=== PATIENT | male | born 1950 | race Caucasian/White ===

== ENCOUNTER 2018-06-28 17:38 | Emergency (ER) | payer BC, OTHER ==
[2018-06-28 17:55] VITALS: RESP 16
[2018-06-28] MEDS ORDERED: DIPH,PERTUS(ACELL)TETVAC-LF 0.5 ML VIAL IM ONE (18:13)
--- NOTE | 2018-06-28 18:30 | ED ---
Upper Extremity HPI - General Chief Complaint: Extremity Injury, Upper Stated Complaint: LAC Time Seen by Provider: 06/28/18 17:57 Source: patient, RN notes reviewed Mode of arrival: ambulatory Limitations: no limitations - History of Present Illness Initial Comments: This is a 67-year-old male who presents to the emergency department with chief complaint of right upper extremity injuries. Patient states approximately 1-1/ 2 hours ago he was at work. He states that he was in a poorly lit room looking for supplies. Patient states that he did see and hear a fan but thought that there was a cover over it. He states that he put his arm out to push it out of the way and the fan cut his right forearm. Patient states that he looked down and then noticed that it also cut the pinky finger on his right hand. Patient states he does have normal sensation. He was transported to the emergency department via EMS. He states he is unsure if he is up-to-date with his tetanus vaccination. Patient denies any other injuries or trauma. Denies fever , chills, chest pain, shortness of breath, abdominal pain, nausea or vomiting, numbness or tingling, headache or vision changes. - Related Data Home Medications Medication Instructions Recorded Confirmed Fluticasone Propionate [Flonase] 1 spray EA NOSTRIL BID 08/21/14 05/15/16 Loratadine [Claritin] 10 mg PO DAILY 08/21/14 05/15/16 Multivitamin [Men's Multi-Vitamin] 1 tab PO DAILY 08/21/14 05/15/16 Previous Rx's Medication Instructions Recorded Ibuprofen [Motrin] 600 mg PO Q8HR PRN #30 tab 06/02/15 Levofloxacin [Levaquin] 750 mg PO DAILY #14 tab 05/16/16 Cephalexin [Keflex] 500 mg PO Q12HR #20 cap 06/28/18 Allergies Allergy/AdvReac Type Severity Reaction Status Date / Time No Known Allergies Allergy Verified 05/15/16 23:44 Review of Systems ROS Statement: Those systems with pertinent positive or pertinent negative responses have been documented in the HPI. ROS Other: All systems not noted in ROS Statement are negative. Past Medical History Additional Past Medical History / Comment(s): kidney stones, seasonal allergies History of Any Multi-Drug Resistant Organisms: None Reported Past Surgical History: Hernia Repair, Tonsillectomy Additional Past Surgical History / Comment(s): hemorroids Past Psychological History: No Psychological Hx Reported Smoking Status: Never smoker Past Alcohol Use History: Rare Past Drug Use History: None Reported General Exam - General Exam Comments Initial Comments: General: Awake and alert, well-developed; in mild distress due to anxiety about the incident. HEENT: Head atraumatic, normocephalic. Pupils are equal, round and reactive to light. Extraocular movements intact. Oropharynx moist without erythema or exudate. Neck: Supple. Normal ROM. Cardiovascular: Regular rate and rhythm. No murmurs, rubs or gallops. Chest symmetrical. Respiratory: Lungs clear to auscultation bilaterally. No wheezes, rales or rhonchi. Normal respiratory effort with no use of accessory muscles. Musculoskeletal: Patient unable to move the fifth digit on right hand. Ulnar deviation of the finger. Sensation is intact. Radial pulses are 2+ equal and palpable bilaterally. Skin: Approximately 2.0 cm laceration to the webbing between fingers 4 and 5 on the right hand. Approximately 5 cm laceration mid right dorsal forearm. Approximately 8 cm superficial laceration proximal right dorsal forearm. Bleeding is controlled. Neurological: Alert and oriented x3. CN II-XII grossly intact. Speech is fluent and answers are appropriate. No focal neuro deficits. Limitations: no limitations Course Vital Signs 06/28/18 17:53 Temperature 97.5 F L Pulse Rate 89 Respiratory 16 Rate Blood Pressure 154/88 O2 Sat by Pulse 100 Oximetry Procedures - Laceration Laceration #1 Consent Obtained: verbal consent Indication: laceration Site: hand (webbing between fingers 4 and 5 on right hand ) Size (cm): 2 Description: linear Depth: involves muscle layer Anesthetic Used: lidocaine 1% Anesthesia Technique: local infiltration Amount (mls): 3 Pre-repair: wound explored, irrigated extensively Type of Sutures: nylon Size of Sutures: 5-0 Number of Sutures: 5 Technique: simple, interrupted Patient Tolerated Procedure: well, no complications Laceration #2 Consent Obtained: verbal consent Indication: laceration Site: upper extremity (right mid dorsal forearm ) Size (cm): 5 Description: linear Depth: simple, single layer Anesthetic Used: lidocaine 1% Anesthesia Technique: local infiltration Amount (mls): 3 Pre-repair: wound explored, irrigated extensively, deep structures intact Type of Sutures: nylon Size of Sutures: 4-0 Number of Sutures: 5 Technique: simple, interrupted Patient Tolerated Procedure: well, no complications Laceration #3 Consent Obtained: verbal consent Indication: laceration Site: upper extremity (right proximal dorsal forearm ) Size (cm): 8 Description: linear Depth: simple, single layer Anesthetic Used: lidocaine 1% Anesthesia Technique: local infiltration Amount (mls): 3 Pre-repair: wound explored, irrigated extensively, deep structures intact Type of Sutures: nylon Size of Sutures: 4-0 Number of Sutures: 5 Technique: simple, interrupted Patient Tolerated Procedure: well, no complications - Orthopedic Fracture Reduction Fracture #1 Consent Obtained: verbal consent Side: right Fracture Reduction Location: finger (fifth digit) Analgesia: digital block Technique: traction/counter-traction Post Reduction X-rays Demonstrate: anatomical reduction Post-Reduction Neuro Exam: intact Post-Reduction Vascular Exam: intact Splint Applied: Yes (ulnar gutter short arm OCL) Patient Tolerated Procedure: well, no complications Medical Decision Making - Medical Decision Making This is a 67-year-old male who presents to the emergency department with chief complaint of right arm injury. Patient reports accidentally sticking his right arm into a rotating fan. Patient sustained multiple lacerations to the hand and the forearm. Lacerations were thoroughly cleansed and explored. No obvious tendon laceration to the right pinky, however it is deformed with ulnar deviation and patient unable to flex the finger. Lacerations were repaired. X- ray of the right forearm revealed no acute osseous abnormalities. X-ray of the right hand revealed a fracture of the proximal phalanx on the right fifth digit with posterior angulation. I spoke with Elle Smart PA-C from [facility] regarding this case. She states that patient can be seen by Dr. Hankins in the office on Saturday. Recommended reduction and an ulnar gutter splint. Reduction of fracture was attempted. An audible pop was heard and an ulnar gutter splint was immediately placed. Postreduction x-ray was obtained which revealed successful reduction with no new fractures. Fracture is open so patient was treated with antibiotics in the emergency department. He will be discharged home on Keflex. Patient was made up-to-date with tetanus vaccination. Patient is to keep splint clean, dry and intact. He is to follow- up with [facility] on Saturday morning. He is to have sutures removed in 10-14 days. Vital signs are stable and patient is in no acute distress. He will be discharged home at this time. All questions were answered. - Radiology Data Radiology results: report reviewed, image reviewed X-ray right hand impression: Fracture proximal metaphysis proximal phalanx fifth digit with posterior angulation of the distal fracture fragment. X-ray right forearm impression: soft tissue injury right forearm. Radius and ulna appear intact. Postreduction x-ray right hand impression: Reduction of a proximal fifth phalanx fracture. No new fractures are evident. Disposition Clinical Impression: Open fracture of finger of right hand, Laceration of forearm, right Disposition: HOME SELF-CARE Condition: Good Instructions: Laceration (ED), Finger Fracture (ED), Splint Care (ED), Finger Laceration (ED) Additional Instructions: Please follow-up with [facility] on Saturday morning. Please have sutures in your arm removed in 10-14 days. Please leave splint clean, dry and intact. Please take medications as prescribed. Please follow up with primary care provider within 1-2 days. Return to emergency department if symptoms should worsen or any concerns arise. Prescriptions: Cephalexin [Keflex] 500 mg PO Q12HR #20 cap Is patient prescribed a controlled substance at d/c from ED?: No Referrals: Lidia Brooks III, MD [Primary Care Provider] - 1-2 days Grady Hankins DO [Doctor of Osteopathic Medicine] - 1-2 days Time of Disposition: 21:00
--- NOTE | 2018-06-28 18:33 | XR ---
EXAMINATION TYPE: XR hand complete RT DATE OF EXAM: 06/28/2018 COMPARISON: None HISTORY: Laceration TECHNIQUE: Three-view right hand FINDINGS: There is a transverse fracture through the proximal metaphysis proximal phalanx fifth digit . Laceration is evident within soft tissues at this level. There is posterior angulation of the dista l fracture fragment. Joint space narrowing is present throughout the proximal and distal interphalangeal joint spaces. Sof t tissues are otherwise unremarkable. IMPRESSION: 1. 1. Fracture proximal metaphysis proximal phalanx fifth digit with posterior angulation of the distal fracture fragment.
[2018-06-28] MEDS ORDERED: ceFAZolin 1,000 MG VIAL IM STA (18:35)
--- NOTE | 2018-06-28 18:44 | XR ---
EXAMINATION TYPE: XR forearm RT DATE OF EXAM: 06/28/2018 COMPARISON: None HISTORY: Lacerations TECHNIQUE: 2 view right forearm FINDINGS: There appears to be some soft tissue injury over the radial aspect of the forearm. Radius and ulna appear intact. No radiopaque foreign bodies are evident. IMPRESSION: 1. Soft tissue injury right forearm. 2. Radius and ulna appear intact.
--- NOTE | 2018-06-28 20:38 | XR ---
EXAMINATION TYPE: XR hand limited RT DATE OF EXAM: 06/28/2018 COMPARISON: Right hand earlier in the day HISTORY: Fracture proximal fifth phalanx TECHNIQUE: 2 view right hand. Images were obtained through fiberglass splint FINDINGS: The fracture at the proximal phalanx has been reduced. No new fractures are evident. IMPRESSION: 1. Reduction of a proximal fifth phalanx fracture
[2018-06-28 21:05] VITALS: BP 149/78; PULSE 86; TEMP 98
== END 2018-06-28 20:45 | disposition home or self-care (01) ==
LOC: EC 17:38
DX: S62.616A Displaced fracture of proximal phalanx of right little finger, initial encounter for closed fracture (principal); S51.811A Laceration without foreign body of right forearm, initial encounter; S61.411A Laceration without foreign body of right hand, initial encounter; Z79.51 Long term (current) use of inhaled steroids; Z79.899 Other long term (current) drug therapy; Z23 Encounter for immunization; W29.2XXA Contact with other powered household machinery, initial encounter; Y92.69 Other specified industrial and construction area as the place of occurrence of the external cause; Y99.0 Civilian activity done for income or pay
CPT/HCPCS: 99284; 26725; 12005; 96372; 90471; 73090; 73120; 73130; 90715; J0690

== ENCOUNTER 2018-06-30 19:33 | Emergency (ER) | payer OTHER, BC ==
--- NOTE | 2018-06-30 21:36 | ED ---
Upper Extremity HPI - General Chief Complaint: Extremity Injury, Upper Stated Complaint: Work Injury complication r hand Time Seen by Provider: 06/30/18 20:36 Source: patient Mode of arrival: ambulatory Limitations: no limitations - History of Present Illness Initial Comments: This a 67 yo-year-old male with recent dx of open right proximal phalanx of the 5th digit currently taking keflex who presents today for thumb tingling and swelling. Pt states that he did not know he was supposed to call himself to make the orthopedic surgery f/u supposed to be scheduled for Saturday. He called today and they stated they could not get him in until Saturday. Pt then later this evening his thumb began tingling and he noticed increased swelling of his medial aspect of right hand. Pt denies numbness, loss of sensation, increasing pain, erythema, fever, chills, increasing pain in the right 5th digit or any other symptoms. Pt thought that the splint may have been too tight. He also admitted to not elevating his hand and has had it hanging next to him while in the recliner since Saturday. Patient denies any recent fever, chills, shortness of breath, chest pain, back pain, abdominal pain, nausea or vomiting, numbness or tingling, dysuria or hematuria, constipation or diarrhea, headaches or visual changes, or any other complaints. VS stable, pt afebrile. - Related Data Home Medications Medication Instructions Recorded Confirmed Fluticasone Propionate [Flonase] 1 spray EA NOSTRIL BID 08/21/14 05/15/16 Loratadine [Claritin] 10 mg PO DAILY 08/21/14 05/15/16 Multivitamin [Men's Multi-Vitamin] 1 tab PO DAILY 08/21/14 05/15/16 Previous Rx's Medication Instructions Recorded Ibuprofen [Motrin] 600 mg PO Q8HR PRN #30 tab 06/02/15 Levofloxacin [Levaquin] 750 mg PO DAILY #14 tab 05/16/16 Cephalexin [Keflex] 500 mg PO Q12HR #20 cap 06/28/18 HYDROcodone/APAP 5-325MG [Gilbert 5] 1 each PO Q6HR PRN 1 Days #4 tab 06/30/18 Allergies Allergy/AdvReac Type Severity Reaction Status Date / Time No Known Allergies Allergy Verified 05/15/16 23:44 Review of Systems ROS Statement: Those systems with pertinent positive or pertinent negative responses have been documented in the HPI. ROS Other: All systems not noted in ROS Statement are negative. Constitutional: Denies: fever, chills Eyes: Denies: vision change ENT: Denies: ear pain Respiratory: Denies: cough, dyspnea Cardiovascular: Denies: chest pain, palpitations Endocrine: Denies: fatigue Gastrointestinal: Denies: abdominal pain, nausea, vomiting, diarrhea, constipation Musculoskeletal: Reports: joint swelling, arthralgia Skin: Reports: as per HPI, lesions (lacerations with sutures in place) Neurological: Reports: paresthesias (of right medial side of hand). Denies: headache, weakness, numbness, confusion, abnormal gait Past Medical History Additional Past Medical History / Comment(s): kidney stones, seasonal allergies History of Any Multi-Drug Resistant Organisms: None Reported Past Surgical History: Hernia Repair, Tonsillectomy Additional Past Surgical History / Comment(s): hemorroids Past Psychological History: No Psychological Hx Reported Smoking Status: Never smoker Past Alcohol Use History: Rare Past Drug Use History: None Reported General Exam - General Exam Comments Initial Comments: General: The patient is awake and alert, in no distress, and does not appear acutely ill. Eye: Pupils are equal, round and reactive to light, extra-ocular movements are intact. No nystagmus. There is normal conjunctiva bilaterally. No signs of icterus. Ears, nose, mouth and throat: There are moist mucous membranes and no oral lesions. Neck: The neck is supple, there is no tenderness or JVD. Cardiovascular: There is a regular rate and rhythm. No murmur, rub or gallop is appreciated. Respiratory: Lungs are clear to auscultation, respirations are non-labored, breath sounds are equal. No wheezes, stridor, rales, or rhonchi. Musculoskeletal: Normal ROM of all 5 digits or right hand intact, tenderness of fifth digit. No tenderness to palpation over the thumb of the right hand or proximal MCP joint. Normal ROM of thumb at all joints, wiht 5/5 strength Sensation intact of all 5 digits of hands b/l. Pulses equal bilaterally 2+ .Capillary refill <2seconds all 5 digits of right hand. Pt able to make ok, thumbs up and stop sign. compartments soft and compressible. Neurological: A&O x 3. CN II-XII intact, There are no obvious motor or sensory deficits. Coordination appears grossly intact. Speech is normal. Skin: Skin is warm and dry and no rashes. Lacerations of right forearm and right 5th digits are without signs of secondary infection, no surrounding erythema, warmth, tenderness or drainage. Suture intact. No active bleeding. Soft tissue swelling over the medial dorsal surface of the right hand, no soft tissue swelling over the right 5th digit. Tight splint was removed from the ulnar side of right hand. Psychiatric: Cooperative, appropriate mood & affect, normal judgment. Limitations: no limitations Course Vital Signs 06/30/18 06/30/18 19:46 21:43 Temperature 98.5 F 98.2 F Pulse Rate 71 69 Respiratory 16 18 Rate Blood Pressure 114/66 125/70 O2 Sat by Pulse 98 98 Oximetry Medical Decision Making - Medical Decision Making 67male with recent open fx 06/28/18 lost to f/u, with now scheduled f/u for Saturday, as [facility] stated that they could not get him in until then. physical exam revealed tightly placed splint, and soft tissue swelling. It appeared as though soft tissue swelling was caused by splint. Once removed pt experienced immediate relief stating the tingling sensation in left thumb significantly reduced. compartments soft and compressible and neurovascular exam intact. Pt stated pain hasnt changed since yesterday but wanted a stronger medication. No signs of infection including erythema, increasing warmth , pain out of proportion, purulent drainage. Case was discussed with Dr. Rowe in detail. Pt is to f/u with Orthopedics TOMORROW, and was prescribed 4 tabs of norco for pain mgmt until further orthopedic evaluation and treatment. Pt does not take opiods or benzodiapines at home. Pt agreed with plan and was told to return for worsening symptoms. Im addition pt was told to elevate hand while at home. Disposition Clinical Impression: Fracture of proximal phalanx of right little finger, Open fracture of finger of right hand Disposition: HOME SELF-CARE Condition: Good Additional Instructions: Please use medication as discussed. Please follow-up with orthopedic surgery tomorrow. Please return to emergency room if the symptoms increase or worsen or for any other concerns as discussed. Prescriptions: HYDROcodone/APAP 5-325MG [Gilbert 5] 1 each PO Q6HR PRN 1 Days #4 tab PRN Reason: Pain Is patient prescribed a controlled substance at d/c from ED?: Yes When asked, does pt state using other controlled substances?: No If prescribed controlled substance>3 days was MAPS reviewed?: Prescribed <3 Days If opioid is for acute pain is fill amount 7 days or less?: Yes If Rx opioid, was Start Talking consent form obtained?: Yes Referrals: Lidia Brooks III, MD [Primary Care Provider] - 1-2 days Elle Smart PAC [PHYSICIAN ASSOCIATE VETERINARIAN] - 1-2 days Time of Disposition: 21:36
[2018-06-30 21:45] VITALS: BP 125/70; PULSE 69; RESP 18; TEMP 98.2
== END 2018-06-30 21:43 | disposition home or self-care (01) ==
LOC: EC 19:33
DX: S62.616D Displaced fracture of proximal phalanx of right little finger, subsequent encounter for fracture with routine healing (principal); S51.811D Laceration without foreign body of right forearm, subsequent encounter; Z79.51 Long term (current) use of inhaled steroids; Z79.899 Other long term (current) drug therapy; X58.XXXD Exposure to other specified factors, subsequent encounter
CPT/HCPCS: 99282

== ENCOUNTER → 2019-11-11 | Outpatient (CLI) | payer MEDICARE | END | disposition home or self-care (01) | LOC: LABWHC1 15:21 | PROVIDERS: ATTEND Urology | DX: R97.20 Elevated prostate specific antigen [PSA] (principal) | CPT/HCPCS: 36415; 84153 ==

== ENCOUNTER 2020-05-31 19:59 | Emergency (ER) | payer MEDICARE ==
[2020-05-31 20:11] VITALS: RESP 18
[2020-05-31] MEDS ORDERED: ONDANSETRON 4 MG/2 ML VIAL IVP STA (20:48)
[2020-05-31] MEDS ORDERED: KETOROLAC 30 MG/ML 1 ML VIAL IVP STA (20:48)
--- NOTE | 2020-05-31 21:16 | CT ---
EXAMINATION TYPE: CT abdomen pelvis wo con DATE OF EXAM: 05/31/2020 COMPARISON: None HISTORY: right flank pain. hx of stones. CT DLP: 533.8 mGycm Automated exposure control for dose reduction was used. Multiple axial sections were obtained from the diaphragm to the floor the pelvis with no contrast. Lung bases are clear of consolidation. There is no pleural effusion. Heart is enlarged. There is 1 cm hypodensity in the anterior right lobe of the liver. Gallbladder has normal size and co ntour. Stomach is intact. There is small hiatal hernia. Spleen is intact. There is no evidence of rangel creatic mass. Kidneys have normal size. There is right side hydronephrosis and hydroureter. There is 6 mm calculus proximal right ureter. There is 5 mm calculus lower pole right kidney. There is 5 mm calculus medial left kidney. There is no retroperitoneal adenopathy. Ureters are not dilated. There is 6 cm enlarged prostate with calcification. There is no inguinal hernia. There is no evidence of bladder mass. There is mild urin noah bladder wall thickening. There is no sign of thickened appendix. Appendix not well seen. There is spondylotic changes in the l umbar spine. There is a slight lumbar levoscoliosis. The bony pelvis appears intact. IMPRESSION: Bilateral renal calculi. Obstructing calculus proximal right ureter with right-sided hydronephrosis. Cardiomegaly. Mild hypertrophic changes in the urinary bladder. Enlarged prostate.
[2020-05-31 21:56] LABS: Basophils % (A) 0 %; Eosinophils # (A) 0.1 k/uL (0-0.7); Eosinophils % (A) 2 %; HCT 43.3 % (39.0-53.0); HGB 13.9 gm/dL (13.0-17.5); Lymphocytes # (A) 1.3 k/uL (1.0-4.8); Lymphocytes % (A) 16 %; MCH 29.6 pg (25.0-35.0); MCHC 32.1 g/dL (31.0-37.0); Mean Platelet Volume 7.3; Monocytes # (A) 0.4 k/uL (0-1.0); Monocytes % (A) 5 %; Neutrophils # (A) 5.9 k/uL (1.3-7.7); Neutrophils % (A) 75 %; Platelet Count 304 k/uL (150-450); RBC 4.71 m/uL (4.30-5.90); WBC 7.8 k/uL (3.8-10.6)
[2020-05-31 22:06] LABS: Calcium 9.6 mg/dL (8.4-10.2); Potassium 4.5 mmol/L (3.5-5.1); Total Bilirubin 0.6 mg/dL (0.2-1.3); Total Protein 6.2 g/dL (6.3-8.2)
[2020-05-31 22:12] LABS: Appearance,Urine Clear (Clear); Bilirubin,Urine Negative (Negative); Blood,Urine Large (Negative); Calcium Oxalate Crystals,Urine Occasional /hpf; Color,Urine Yellow; Glucose,Urine (UA) Negative (Negative); Hyaline Casts,Urine 7 /lpf (0-2); Ketones,Urine Negative (Negative); Leukocyte Esterase,Urine Trace (Negative); Mucus,Urine Rare /hpf; Nitrite,Urine Negative (Negative); PH, Urine 6.5 (5.0-8.0); Protein,Urine Trace (Negative); RBC,Urine 144 /hpf (0-5); Specific Gravity,Urine 1.017 (1.001-1.035); Urobilinogen,Urine <2.0 mg/dL (<2.0); WBC,Urine 4 /hpf (0-5)
[2020-05-31] MEDS ORDERED: ACET/COD 300 MG/30 MG STARTER PACK 6 TAB BTL PO STA (22:54)
--- NOTE | 2020-05-31 22:59 | ED ---
Abdominal Pain HPI - General Chief Complaint: Abdominal Pain Stated Complaint: R Flank Pain Source: patient, family Mode of arrival: ambulatory Limitations: no limitations - History of Present Illness Initial Comments: Patient is a 6-year-old male with past history of nephrolithiasis who presents emergency Department with reported right-sided flank pain. Patient reports the pain started approximately 1.5 hours prior to arrival. It starts in his right flank and radiates around to the right lower quadrant. States the pain is reminiscent of previous pain with renal stones. States he has not had one in several years. He followed with Dr. Bal at the time. Patient reports associated nausea without vomiting. She did not take anything for his pain became into the emergency department. Denies dysuria, hematuria or difficulty voiding. No diarrhea, constipation, melenic stools or hematochezia. Denies any testicular pain or swelling. There are no other alleviating, precipitating or modifying factors - Related Data Home Medications Medication Instructions Recorded Confirmed Fluticasone Propionate [Flonase] 1 spray EA NOSTRIL HS 08/21/14 05/31/20 Loratadine [Claritin] 10 mg PO HS 08/21/14 05/31/20 Previous Rx's Medication Instructions Recorded Acetaminophen-Codeine 300-30mg 1 tab PO Q6HR PRN #12 tablet 05/31/20 [Tylenol #3] Tamsulosin [Flomax] 0.4 mg PO DAILY #7 cap 05/31/20 Allergies Allergy/AdvReac Type Severity Reaction Status Date / Time No Known Allergies Allergy Verified 05/31/20 21:14 Review of Systems ROS Statement: Those systems with pertinent positive or pertinent negative responses have been documented in the HPI. ROS Other: All systems not noted in ROS Statement are negative. Past Medical History Additional Past Medical History / Comment(s): kidney stones, seasonal allergies History of Any Multi-Drug Resistant Organisms: None Reported Past Surgical History: Hernia Repair, Tonsillectomy Additional Past Surgical History / Comment(s): hemorroids Past Psychological History: No Psychological Hx Reported Smoking Status: Never smoker Past Alcohol Use History: Rare Past Drug Use History: None Reported General Exam Limitations: no limitations Course Vital Signs 05/31/20 05/31/20 20:09 23:19 Temperature 98.3 F 97.8 F Pulse Rate 80 60 Respiratory 18 18 Rate Blood Pressure 167/90 147/85 O2 Sat by Pulse 98 97 Oximetry Medical Decision Making - Medical Decision Making Upon arrival the patient was placed into room 11. A thorough history and physical exam was performed. Peripheral IV was established. Laboratory studies were conducted. The patient did provide a urine sample. He was given 4 mg of Zofran for nausea and 15 mg of Toradol for pain. Laboratory studies are un remarkable. Urinalysis shows 144 red blood cells with occasional calcium oxalate crystals and large blood. CT of the patient's abdomen and pelvis demonstrates a lateral renal Kegley with an obstructing calculus at the proximal right ureter with right-sided hydronephrosis. I discussed results of the patient. Pain is controlled at this time. The patient will be discharged home with prescriptions for Tylenol 3, Flomax. He is instructed to take Motrin as well for his pain. He will be given a Tylenol starter pack. He is to follow-up with his urologist for further treatment plan. If he has any new or worsening symptoms return to the emergency room. Patient was in agreement treatment plan he was discharged home in stable condition - Lab Data Result diagrams: 05/31/20 21:35 05/31/20 21:35 Lab Results 05/31/20 05/31/20 05/31/20 Range/Units 21:35 21:35 21:35 WBC 7.8 (3.8-10.6) k/uL RBC 4.71 (4.30-5.90) m/uL Hgb 13.9 (13.0-17.5) gm/dL Hct 43.3 (39.0-53.0) % MCV 92.0 (80.0-100.0) fL MCH 29.6 (25.0-35.0) pg MCHC 32.1 (31.0-37.0) g/dL RDW 13.0 (11.5-15.5) % Plt Count 304 (150-450) k/uL Neutrophils % 75 % Lymphocytes % 16 % Monocytes % 5 % Eosinophils % 2 % Basophils % 0 % Neutrophils # 5.9 (1.3-7.7) k/uL Lymphocytes # 1.3 (1.0-4.8) k/uL Monocytes # 0.4 (0-1.0) k/uL Eosinophils # 0.1 (0-0.7) k/uL Basophils # 0.0 (0-0.2) k/uL Sodium 138 (137-145) mmol/L Potassium 4.5 (3.5-5.1) mmol/L Chloride 106 (98-107) mmol/L Carbon Dioxide 27 (22-30) mmol/L Anion Gap 5 mmol/L BUN 17 (9-20) mg/dL Creatinine 1.13 (0.66-1.25) mg/dL Est GFR (CKD-EPI)AfAm 76 (>60 ml/min/1.73 sqM) Est GFR (CKD-EPI)NonAf 66 (>60 ml/min/1.73 sqM) Glucose 121 H (74-99) mg/dL Calcium 9.6 (8.4-10.2) mg/dL Total Bilirubin 0.6 (0.2-1.3) mg/dL AST 26 (17-59) U/L ALT 18 (4-49) U/L Alkaline Phosphatase 63 (38-126) U/L Total Protein 6.2 L (6.3-8.2) g/dL Albumin 4.0 (3.5-5.0) g/dL Lipase 76 (23-300) U/L Urine Color Yellow Urine Appearance Clear (Clear) Urine pH 6.5 (5.0-8.0) Ur Specific [place] 1.017 (1.001-1.035) Urine Protein Trace H (Negative) Urine Glucose (UA) Negative (Negative) Urine Ketones Negative (Negative) Urine Blood Large H (Negative) Urine Nitrite Negative (Negative) Urine Bilirubin Negative (Negative) Urine Urobilinogen <2.0 (<2.0) mg/dL Ur Leukocyte Esterase Trace H (Negative) Urine RBC 144 H (0-5) /hpf Urine WBC 4 (0-5) /hpf Calcium Oxalate Crystal Occasional H (None) /hpf Hyaline Casts 7 H (0-2) /lpf Urine Mucus Rare H (None) /hpf Disposition Clinical Impression: Right flank pain, Obstruction of right ureteropelvic junction (UPJ) due to stone Disposition: HOME SELF-CARE Condition: Stable Instructions (If sedation given, give patient instructions): Kidney Stones (ED) Additional Instructions: Please call and make an appoint with Dr. Cole. Return to the emergency department for any new or worsening symptoms Prescriptions: Tamsulosin [Flomax] 0.4 mg PO DAILY #7 cap Acetaminophen-Codeine 300-30mg [Tylenol #3] 1 tab PO Q6HR PRN #12 tablet PRN Reason: pain Is patient prescribed a controlled substance at d/c from ED?: Yes When asked, does pt state using other controlled substances?: No If prescribed controlled substance>3 days was MAPS reviewed?: Prescribed <3 Days If opioid is for acute pain is fill amount 7 days or less?: Yes If Rx opioid, was Start Talking consent form obtained?: Yes Referrals: Lidia Brooks III, MD [Primary Care Provider] - 1-2 days Jericho Devries MD [STAFF PHYSICIAN] - 1-2 days Time of Disposition: 22:59
[2020-05-31 23:20] VITALS: BP 147/85; PULSE 60; TEMP 97.8
== END 2020-05-31 23:20 | disposition home or self-care (01) ==
LOC: EC 19:59
DX: N13.0 Hydronephrosis with ureteropelvic junction obstruction (principal); Z79.899 Other long term (current) drug therapy
CPT/HCPCS: 36415; 80053; 83690; 85025; 81001; 74176; 99284; 96374; 96375; J2405; J1885

== ENCOUNTER → 2020-06-02 | Outpatient (CLI) | payer MEDICARE ==
--- NOTE | 2020-06-02 09:48 | XR ---
EXAMINATION TYPE: XR abdomen 1V DATE OF EXAM: 06/02/2020 Comparison: Correlation CT 05/31/2020 Clinical History: 69-year-old male N20.1 R ureteral stone Findings: A subtle 5 mm calcification in the right mid abdomen. Otherwise, both renal shadows are largely obscu red by bowel content. Phleboliths in the pelvis. Additional prostatic calcifications noted along the lower midline of the p courtney. Nonobstructive bowel gas pattern. Impression: Subtle 5 mm right renal calculus suggested. Otherwise, the renal shadows are largely obscured by over lying bowel content.
== END | disposition home or self-care (01) ==
LOC: RADXRMAIN 08:30
PROVIDERS: ATTEND Urology
DX: N20.0 Calculus of kidney (principal)
CPT/HCPCS: 74018

== ENCOUNTER → 2020-06-21 | Outpatient (CLI) | payer MEDICARE ==
--- NOTE | 2020-06-21 14:48 | XR ---
EXAMINATION TYPE: XR KUB DATE OF EXAM: 06/21/2020 HISTORY: Pain Comparison: None.Single KUB is submitted for interpretation. Findings: Right renal calculi: None Visualized. Right ureteral calculi: None Visualized. Left renal calculi: None Visualized. Left ureteral calculi: None Visualized. Pelvic calcifications: Pelvic calcifications could reflect distal ureteral calculi versus phlebolith s. Correlate clinically. Bowel gas pattern is unremarkable. No free air. No mass effects. IMPRESSION: 1. Pelvic calcifications could reflect distal ureteral calculi versus phleboliths. Correlate clinical ly.
== END | disposition home or self-care (01) ==
LOC: RADXRMAIN 13:55
PROVIDERS: ATTEND Urology
DX: N20.1 Calculus of ureter (principal)
CPT/HCPCS: 74018

== ENCOUNTER → 2020-06-21 | Outpatient (CLI) | payer MEDICARE | LOC: LABWHC1 14:10 | PROVIDERS: ATTEND Urology | DX: R97.20 Elevated prostate specific antigen [PSA] (principal) | CPT/HCPCS: 36415; 84153 ==

== ENCOUNTER → 2020-07-06 | Outpatient (CLI) | payer MEDICARE ==
--- NOTE | 2020-07-06 15:52 | XR ---
EXAMINATION TYPE: XR KUB DATE OF EXAM: 07/06/2020 Comparison: 06/21/2020 Clinical History: 69-year-old male right-sided kidney stone, N20.1 Findings: Rounded densities in the pelvis are unchanged from 06/21/2020. Moderate stool in the right side of the abdomen. Renal shadows are largely obscured by bowel content. Subtle 4 mm density in the right mid a bdomen. Advanced degenerative disc disease L4-L5. Impression: 1. Subtle 4 mm calcification right mid abdomen probably located within the kidney itself. Renal shado ws are largely obscured by bowel content. 2. Stable calcifications within the pelvis, probably phleboliths.
== END | disposition home or self-care (01) ==
LOC: RADXRMAIN 14:21
PROVIDERS: ATTEND Urology
DX: N20.1 Calculus of ureter (principal)
CPT/HCPCS: 74018

== ENCOUNTER → 2020-08-03 | Outpatient (CLI) | payer MEDICARE ==
--- NOTE | 2020-08-03 16:21 | XR ---
EXAMINATION TYPE: XR KUB DATE OF EXAM: 08/03/2020 Comparison: 07/06/2020 Clinical History: 69-year-old male N20.1 Findings: Scattered mild to moderate stool. Nonobstructive bowel gas pattern. 5 mm calcification redemonstrated likely in the lower pole right kidney. Pelvic phleboliths are unchanged. Central prosthetic calcific ations are noted. Degenerated levoconvex curvature along the lower lumbar spine. Impression: Unchanged 5 mm calcification projecting at the lower pole of the right kidney.
== END | disposition home or self-care (01) ==
LOC: RADXRMAIN 15:16
PROVIDERS: ATTEND Urology
DX: N28.89 Other specified disorders of kidney and ureter (principal)
CPT/HCPCS: 74018

== ENCOUNTER 2021-02-10 09:04 | Emergency (ER) | payer MEDICARE ==
[2021-02-10 09:15] VITALS: RESP 18; TEMP 98
[2021-02-10] MEDS ORDERED: SODIUM CHLORIDE 0.9% 1,000 ML IV STA (09:22)
--- NOTE | 2021-02-10 09:26 | ED ---
Abdominal Pain HPI - General Chief Complaint: Abdominal Pain Stated Complaint: kidney stone Time Seen by Provider: 02/10/21 09:19 Source: patient, RN notes reviewed Mode of arrival: ambulatory Limitations: no limitations - History of Present Illness Initial Comments: This is a 70-year-old male presents emergency Department chief complaint of left flank pain. Patient states that the pain started earlier this morning sudden onset. Patient states that it feels similar to when he had kidney stones. Patient states he feels improved at this time he did have a bowel movements morning which did seem to help some but not much. Patient has fevers chills chest pain or any other complaints at this time. - Related Data Home Medications Medication Instructions Recorded Confirmed Fluticasone Propionate [Flonase] 1 spray EA NOSTRIL HS 08/21/14 05/31/20 Loratadine [Claritin] 10 mg PO HS 08/21/14 05/31/20 Previous Rx's Medication Instructions Recorded Acetaminophen-Codeine 300-30mg 1 tab PO Q6HR PRN #12 tablet 05/31/20 [Tylenol #3] Tamsulosin [Flomax] 0.4 mg PO DAILY #7 cap 05/31/20 Tamsulosin [Flomax] 0.4 mg PO DAILY #7 cap 02/10/21 Allergies Allergy/AdvReac Type Severity Reaction Status Date / Time No Known Allergies Allergy Verified 02/10/21 09:12 Review of Systems ROS Statement: Those systems with pertinent positive or pertinent negative responses have been documented in the HPI. ROS Other: All systems not noted in ROS Statement are negative. Past Medical History Additional Past Medical History / Comment(s): kidney stones, seasonal allergies History of Any Multi-Drug Resistant Organisms: None Reported Past Surgical History: Hernia Repair, Tonsillectomy Additional Past Surgical History / Comment(s): hemorroids Past Psychological History: No Psychological Hx Reported Smoking Status: Former smoker Past Alcohol Use History: Occasional Past Drug Use History: None Reported General Exam Limitations: no limitations General appearance: alert, in no apparent distress Head exam: Present: atraumatic, normocephalic, normal inspection Neck exam: Present: normal inspection. Absent: tenderness, meningismus, lymphadenopathy Respiratory exam: Present: normal lung sounds bilaterally. Absent: respiratory distress, wheezes, rales, rhonchi, stridor Cardiovascular Exam: Present: regular rate, normal rhythm, normal heart sounds. Absent: systolic murmur, diastolic murmur, rubs, gallop, clicks GI/Abdominal exam: Present: soft, normal bowel sounds. Absent: distended, tenderness, guarding, rebound, rigid Back exam: Absent: CVA tenderness (R), CVA tenderness (L) Course Vital Signs 02/10/21 09:12 Temperature 98 F Pulse Rate 77 Respiratory 18 Rate Blood Pressure 150/78 O2 Sat by Pulse 100 Oximetry Medical Decision Making - Medical Decision Making Labs, urinalysis and x-ray reviewed patient does have hematuria noted. Patient's pain is consistent with a kidney stone he has symptom-free. Patient be discharged in stable condition return parameters were discussed. - Lab Data Result diagrams: 02/10/21 09:37 02/10/21 09:37 Lab Results 02/10/21 02/10/21 02/10/21 Range/Units 09:37 09:37 09:37 WBC 6.7 (3.8-10.6) k/uL RBC 4.81 (4.30-5.90) m/uL Hgb 14.4 (13.0-17.5) gm/dL Hct 43.6 (39.0-53.0) % MCV 90.6 (80.0-100.0) fL MCH 29.9 (25.0-35.0) pg MCHC 33.0 (31.0-37.0) g/dL RDW 12.8 (11.5-15.5) % Plt Count 299 (150-450) k/uL MPV 7.1 Neutrophils % 68 % Lymphocytes % 23 % Monocytes % 5 % Eosinophils % 3 % Basophils % 0 % Neutrophils # 4.5 (1.3-7.7) k/uL Lymphocytes # 1.5 (1.0-4.8) k/uL Monocytes # 0.4 (0-1.0) k/uL Eosinophils # 0.2 (0-0.7) k/uL Basophils # 0.0 (0-0.2) k/uL Sodium 140 (137-145) mmol/L Potassium 4.2 (3.5-5.1) mmol/L Chloride 105 (98-107) mmol/L Carbon Dioxide 26 (22-30) mmol/L Anion Gap 9 mmol/L BUN 21 H (9-20) mg/dL Creatinine 1.11 (0.66-1.25) mg/dL Est GFR (CKD-EPI)AfAm 77 (>60 ml/min/1.73 sqM) Est GFR (CKD-EPI)NonAf 67 (>60 ml/min/1.73 sqM) Glucose 114 H (74-99) mg/dL Calcium 9.5 (8.4-10.2) mg/dL Total Bilirubin 0.7 (0.2-1.3) mg/dL AST 28 (17-59) U/L ALT 21 (4-49) U/L Alkaline Phosphatase 58 (38-126) U/L Total Protein 6.5 (6.3-8.2) g/dL Albumin 4.0 (3.5-5.0) g/dL Lipase 68 (23-300) U/L Urine Color Yellow Urine Appearance Cloudy (Clear) Urine pH 5.5 (5.0-8.0) Ur Specific [place] 1.023 (1.001-1.035) Urine Protein 1+ H (Negative) Urine Glucose (UA) Negative (Negative) Urine Ketones Negative (Negative) Urine Blood Large H (Negative) Urine Nitrite Negative (Negative) Urine Bilirubin Negative (Negative) Urine Urobilinogen <2.0 (<2.0) mg/dL Ur Leukocyte Esterase Trace H (Negative) Urine RBC >182 H (0-5) /hpf Urine WBC 9 H (0-5) /hpf Ur Squamous Epith Cells <1 (0-4) /hpf Calcium Oxalate Crystal Rare H (None) /hpf Urine Mucus Moderate H (None) /hpf Disposition Clinical Impression: Kidney stone on left side Disposition: HOME SELF-CARE Condition: Stable Instructions (If sedation given, give patient instructions): Kidney Stones (ED) Additional Instructions: Please return to the Emergency Department if symptoms worsen or any other concerns. Prescriptions: Tamsulosin [Flomax] 0.4 mg PO DAILY #7 cap Is patient prescribed a controlled substance at d/c from ED?: No Referrals: Lidia Brooks III, MD [Primary Care Provider] - 1-2 days Keegan Koch MD [STAFF PHYSICIAN] - 1-2 days Time of Disposition: 10:39
[2021-02-10 09:54] LABS: Basophils % (A) 0 %; Eosinophils # (A) 0.2 k/uL (0-0.7); Eosinophils % (A) 3 %; HCT 43.6 % (39.0-53.0); HGB 14.4 gm/dL (13.0-17.5); Lymphocytes # (A) 1.5 k/uL (1.0-4.8); Lymphocytes % (A) 23 %; MCH 29.9 pg (25.0-35.0); MCV 90.6 fL (80.0-100.0); Mean Platelet Volume 7.1; Monocytes # (A) 0.4 k/uL (0-1.0); Monocytes % (A) 5 %; Neutrophils # (A) 4.5 k/uL (1.3-7.7); Neutrophils % (A) 68 %; Platelet Count 299 k/uL (150-450); RBC 4.81 m/uL (4.30-5.90); RDW 12.8 % (11.5-15.5); WBC 6.7 k/uL (3.8-10.6)
[2021-02-10 10:05] LABS: Calcium 9.5 mg/dL (8.4-10.2); Potassium 4.2 mmol/L (3.5-5.1); Total Bilirubin 0.7 mg/dL (0.2-1.3); Total Protein 6.5 g/dL (6.3-8.2)
--- NOTE | 2021-02-10 10:13 | XR ---
EXAMINATION TYPE: XR KUB DATE OF EXAM: 02/10/2021 9:57 AM CLINICAL HISTORY: Left-sided flank pain. History of kidney stones. TECHNIQUE: Two Upright KUB images of the abdomen are obtained. COMPARISON: Abdominal x-ray August 03, 2020. CT May 31, 2020 FINDINGS: Scattered gas is seen in non-distended small bowel loops. Gas and fecal material is seen in non-distended colon. There is no definitive nephrolithiasis on today's x-ray. Possible new left bas ilar opacity silhouetting portion left hemidiaphragm. Underlying levoconvex scoliosis centered L4 lev el. Persistent disc space narrowing and spurring lower lumbar levels. IMPRESSION: As above.
[2021-02-10 10:25] LABS: Appearance,Urine Cloudy (Clear); Bilirubin,Urine Negative (Negative); Blood,Urine Large (Negative); Calcium Oxalate Crystals,Urine Rare /hpf; Color,Urine Yellow; Glucose,Urine (UA) Negative (Negative); Ketones,Urine Negative (Negative); Leukocyte Esterase,Urine Trace (Negative); Mucus,Urine Moderate /hpf; Nitrite,Urine Negative (Negative); PH, Urine 5.5 (5.0-8.0); Protein,Urine 1+ (Negative); RBC,Urine >182 /hpf (0-5); Specific Gravity,Urine 1.023 (1.001-1.035); Squamous Epithelial Cell,Urine <1 /hpf (0-4); Urobilinogen,Urine <2.0 mg/dL (<2.0); WBC,Urine 9 /hpf (0-5)
[2021-02-10] MEDS ORDERED: ACET/COD 300 MG/30 MG STARTER PACK 6 TAB BTL PO STA (10:38)
[2021-02-10 11:10] VITALS: BP 152/98; PULSE 81
== END 2021-02-10 11:09 | disposition home or self-care (01) ==
LOC: EC 09:04
DX: N20.0 Calculus of kidney (principal); Z87.891 Personal history of nicotine dependence
CPT/HCPCS: 36415; 74018; 80053; 81001; 83690; 85025; 96360; 99284

== ENCOUNTER 2022-02-14 09:26 | Day surgery (SDC) | payer MEDICARE ==
[2022-02-13 08:48] VITALS: BMI 27.4
[~2022-02-14 09:26] MED LIST: LACTATED RINGERS 1,000 ML IV SCH; LIDOCAINE 1% (10MG/ML) FOR IV START INTRADERMA PRN
[2022-02-14 09:57] VITALS: TEMP 97.8
[2022-02-14] MEDS ORDERED: PROPOFOL 10 MG/ML 20 ML VIAL IV ONE (10:49)
[2022-02-14] MEDS ORDERED: LIDOCAINE 1% INJ 10MG/ML (20 ML MDV) ONE (10:49)
--- NOTE | 2022-02-14 11:09 | P.PCN ---
Date of Procedure: 02/14/22 Procedure(s) Performed: BRIEF HISTORY: Patient is a 71-year-old pleasant white male scheduled for an elective colonoscopy as a part of evaluation of prior history of colon polyps. His last colonoscopy was 5 years ago. PROCEDURE PERFORMED: Colonoscopy with snare polypectomy. PREOPERATIVE DIAGNOSIS: History of colon polyps. IV sedation per Anesthesia. PROCEDURE: After informed consent was obtained, the patient, was brought into the endoscopy unit. IV sedation was administered by Anesthesia under continuous monitoring. Digital rectal examination was normal. Initially the Olympus CF-160 flexible video colonoscope was then inserted in the rectum, gradually advanced into the cecum without any difficulty. Careful examination was performed as the scope was gradually being withdrawn. Ileocecal valve and the appendiceal orifice were visualized and appeared normal. Prep was excellent. Mucosa of the cecum a 5 mm sessile polyp removed by snare polypectomy. In the ascending colon there was a 3 mm and 7 mm polyp removed by snare polypectomy. Rest of the, ascending colon, transverse colon, descending colon, sigmoid colon, and rectum appeared normal. Retroflexion was performed in the rectum and all internal hemorrhoids were seen. The patient tolerated the procedure well. IMPRESSION: 5 mm cecal polyp status post polypectomy 7 mm and 3 mm ascending colon polyp status post polypectomy Small internal hemorrhoids RECOMMENDATIONS: Findings of this examination were discussed with the patient well as her family. He was advised to follow with the biopsy results. If the biopsy results and adenoma he can have a repeat colonoscopy in 5 years..
[2022-02-14 11:14] VITALS: RESP 16
[2022-02-14 11:29] VITALS: BP 107/69; PULSE 67
== END 2022-02-14 11:48 | disposition home or self-care (01) ==
LOC: ORWHC2ENDO 09:26
PROVIDERS: ATTEND Internal Medicine Gastroenterology
DX: Z12.11 Encounter for screening for malignant neoplasm of colon (principal); D12.2 Benign neoplasm of ascending colon; D12.0 Benign neoplasm of cecum; K64.8 Other hemorrhoids; Z86.010 Personal history of colon polyps; J30.2 Other seasonal allergic rhinitis; Z79.899 Other long term (current) drug therapy; Z87.442 Personal history of urinary calculi
CPT/HCPCS: 88305; 45385; J2001; J2704

== ENCOUNTER → 2023-10-08 | Outpatient (CLI) | payer MEDICARE ==
--- NOTE | 2023-10-08 08:37 | US ---
EXAMINATION TYPE: US duplex aorta DATE OF EXAM: 10/08/2023 COMPARISON: CT abdomen pelvis 05/31/2020 CLINICAL INDICATION: Male, 72 years old with history of Z13.6 screening for AAA; AAA screening TECHNIQUE: Multiple sonographic images of the abdominal aorta are obtained. FINDINGS: EXAM MEASUREMENTS: Abdominal Aorta: Proximal: 2.0 x 1.9 cm Mid: 1.5 x 1.5 cm Distal: 1.6 x 1.3 cm Bifurcation: 1.0 x .9 cm .8 x .9 cm IMPRESSION: No ultrasound evidence for abdominal aortic aneurysm.
== END | disposition home or self-care (01) ==
LOC: RADUSWWP 07:40
PROVIDERS: ATTEND Internal Medicine
DX: Z13.6 Encounter for screening for cardiovascular disorders (principal)
CPT/HCPCS: 93979

== ENCOUNTER 2023-10-25 20:14 | Emergency (ER) | payer MEDICARE ==
[2023-10-25 22:11] VITALS: PULSE 74; RESP 18
--- NOTE | 2023-10-25 23:06 | ED ---
General Adult HPI - General Source: patient Mode of arrival: ambulatory Limitations: no limitations <Jagdeep Cruz - Last Filed: 10/25/23 23:06> <Jorge Russo - Last Filed: 10/26/23 01:22> - General Chief complaint: Headache Stated complaint: Sob,lightheaded/pain Time Seen by Provider: 10/25/23 23:03 - History of Present Illness Initial comments: 72-year-old male presenting to the ED with a chief complaint of headache. Patient states whenever he does physical activity starts to feel pressure in the back of his head starts to feel lightheaded and dizzy. Describes as both as if he is going to pass out and as if the room is spinning. No chest pain or shortness of breath. (Jagdeep Cruz) Dictation was produced using [employer] dictation software. please excuse any grammatical, word or spelling errors. Chief Complaint: 72-year-old male presents emergency Department with posterior head discomfort History of Present Illness: Is 72-year-old male he has no past medical history presents emergency Department with 2 days of posterior head discomfort. He denies that it's pain. He states that it's at the base of his skull. Denies any neck pain. No fever or chills or night sweats. No numbness and paresthesias to the arms or legs. Patient denies any history of headaches. The ROS documented in this emergency department record has been reviewed and confirmed by me. Those systems with pertinent positive or negative responses have been documented in the HPI. All other systems are other negative and/or noncontributory. (Jorge Russo) - Related Data Home Medications Medication Instructions Recorded Confirmed Fluticasone Propionate [Flonase] 1 spray EA NOSTRIL HS 08/21/14 02/13/22 Loratadine [Claritin] 10 mg PO HS 08/21/14 02/13/22 Previous Rx's Medication Instructions Recorded Tamsulosin [Flomax] 0.4 mg PO DAILY #7 cap 05/31/20 Allergies Allergy/AdvReac Type Severity Reaction Status Date / Time No Known Allergies Allergy Verified 10/25/23 21:57 Review of Systems ROS Other: All systems not noted in ROS Statement are negative. <Jagdeep Cruz - Last Filed: 10/25/23 23:06> ROS Other: All systems not noted in ROS Statement are negative. <Jorge Russo - Last Filed: 10/26/23 01:22> ROS Statement: Those systems with pertinent positive or pertinent negative responses have been documented in the HPI. Past Medical History Additional Past Medical History / Comment(s): kidney stones, seasonal allergies History of Any Multi-Drug Resistant Organisms: None Reported Past Surgical History: Hernia Repair, Tonsillectomy Additional Past Surgical History / Comment(s): hemorroids Past Psychological History: No Psychological Hx Reported Smoking Status: Former smoker Past Alcohol Use History: Occasional Past Drug Use History: None Reported <Jagdeep Cruz - Last Filed: 10/25/23 23:06> General Exam Limitations: no limitations General appearance: alert, in no apparent distress Neck exam: Present: normal inspection Extremities exam: Present: normal inspection Back exam: Present: normal inspection Neurological exam: Present: alert <Jagdeep Cruz - Last Filed: 10/25/23 23:06> <Jorge Russo - Last Filed: 10/26/23 01:22> - General Exam Comments Initial Comments: PHYSICAL EXAM: General Impression: Alert and oriented x3, not in acute distress HEENT: Normocephalic atraumatic, extra-ocular movements intact, pupils equal and reactive to light bilaterally, mucous membranes moist. Cardiovascular: Heart regular rate and rhythm Chest: Able to complete full sentences, no retractions, no tachypnea Abdomen: abdomen soft, non-tender, non-distended, no organomegaly Musculoskeletal: Pulses present and equal in all extremities, no peripheral edema Motor: no focal deficits noted Neurological: CN II-XII grossly intact, no focal motor or sensory deficits noted, mild palpatory tenderness to the occiput just right of midline Skin: Intact with no visualized rashes Psych: Normal affect and mood (Jorge Russo) Course Vital Signs 10/25/23 21:54 Temperature 98.1 F Pulse Rate 74 Respiratory 18 Rate Blood Pressure 126/66 O2 Sat by Pulse 97 Oximetry Medical Decision Making <Jagdeep Cruz - Last Filed: 10/25/23 23:06> <Jorge Russo - Last Filed: 10/26/23 01:22> - Medical Decision Making Quicknote portion performed. Signed Jagdeep Cruz PA-C (Jagdeep Cruz) Was pt. sent in by a medical professional or institution (, [facility], PUBLIC RELATIONS SENIOR ASSOCIATE, urgent care, hospital, or assisted...) When possible be specific @ -No Did you speak to anyone other than the patient for history (EMS, parent, family, police, friend...)? What history was obtained from this source @ -No Did you review nursing and triage notes (agree or disagree)? Why? @ -I reviewed and agree with nursing and triage notes Were old charts reviewed (outside hosp., previous admission, EMS record, old EKG, old radiological studies, urgent care reports/EKG's, assisted records)? Report findings @ -No old charts were reviewed Differential Diagnosis (chest pain, altered mental status, abdominal pain women, abdominal pain men, vaginal bleeding, musculoskeletal, weakness, fever, dyspnea, syncope, headache, dizziness, GI bleed, back pain, seizure, CVA, palpatations, mental health)? @ -Differential Headache: Migraine, tension, cluster, carbon monoxide, central venous thrombosis, pension karma temporal arteritis, acute closure glaucoma, intercranial hemorrhage, mastoiditis, sinusitis, head injury, this is not meant to be an all-inclusive list. EKG interpreted by me (3pts min.). @ -None done X-rays interpreted by me (1pt min.). @ -None done CT interpreted by me (1pt min.). @ -None done U/S interpreted by me (1pt. min.). @ -None done What testing was considered but not performed or refused? (CT, X-rays, U/S, labs)? Why? @ -None What meds were considered but not given or refused? Why? @ -None Did you discuss the management of the patient with other professionals (professionals i.e. , [facility], PUBLIC RELATIONS SENIOR ASSOCIATE, lab, RT, psych nurse, home health care social worker, toe sewer, teacher, strike warfare/missile systems officer, casework supervisor)? Give summary @ -No Was smoking cessation discussed for >3mins.? @ -No Was critical care preformed (if so, how long)? @ -No Were there social determinants of health that impacted care today? How? (Homeles sness, low income, unemployed, alcoholism, drug addiction, transportation, low edu. Level, literacy, decrease access to med. care, usp, rehab)? @ -No Was there de-escalation of care discussed even if they declined (Discuss DNR or withdrawal of care, Hospice)? DNR status @ -No What co-morbidities impacted this encounter? (DM, HTN, Smoking, COPD, CAD, Cancer, CVA, ARF, Chemo, Hep., AIDS, mental health diagnosis, sleep apnea, morbid obesity)? @ -None Was patient admitted / discharged? Hospital course, mention meds given and route, prescriptions, significant lab abnormalities, going to OR and other pertinent info. @ -72-year-old male with no past medical history presents to the ER for clinical presentation consistent with occipital neuralgia. Patient is well- appearing physical examination is benign. Vital signs are stable. Patient is agreeable discharged told to follow-up with his primary care doctor. Undiagnosed new problem with uncertain prognosis? @ -No Drug Therapy requiring intensive monitoring for toxicity (Heparin, Nitro, Insulin, Cardizem)? @ -No Were any procedures done? @ -No Diagnosis/symptom? Acute, or Chronic, or Acute on Chronic? Uncomplicated (without systemic symptoms) or Complicated (systemic symptoms)? @ -Occipital neuralgia Side effects of treatment? @ -No Exacerbation, Progression, or Severe Exacerbation? @ -No Poses a threat to life or bodily function? How? (Chest pain, [place], [place], pneumonia, PE, COPD, DKA, ARF, appy, cholecystitis, CVA, Diverticulitis, Homicidal, Suicidal, threat to staff... and all critical care pts) @ -No (Jorge Russo) Disposition <Jagdeep Cruz - Last Filed: 10/25/23 23:06> Is patient prescribed a controlled substance at d/c from ED?: No Time of Disposition: 01:22 <Jorge Russo - Last Filed: 10/26/23 01:22> Clinical Impression: Occipital neuralgia Disposition: HOME SELF-CARE Condition: Good Instructions (If sedation given, give patient instructions): Acute Headache (ED) Referrals: Serg Jacobs MD [Primary Care Provider] - 1-2 days
[2023-10-26] MEDS ORDERED: ACET/COD 300 MG/30 MG STARTER PACK 6 TAB BTL PO STA (01:22)
[2023-10-26 02:08] VITALS: BP 118/71; TEMP 97.9
== END 2023-10-26 01:58 | disposition home or self-care (01) ==
LOC: EC 20:14
DX: M54.81 Occipital neuralgia (principal); Z87.891 Personal history of nicotine dependence
CPT/HCPCS: 99283

== ENCOUNTER → 2024-03-10 | Outpatient (CLI) | payer MEDICARE ==
[2024-03-10 16:05] LABS: Basophils # (A) 0.05 X 10*3/uL (0.00-0.10); Basophils % (A) 0.6 %; Eosinophils # (A) 0.13 X 10*3/uL (0.04-0.35); Eosinophils % (A) 1.7 %; HCT 44.5 % (39.6-50.0); HGB 14.7 g/dL (13.0-17.0); Lymphocytes % (A) 26.7 %; MCH 30.7 pg (27.0-32.0); MCV 92.9 FL (80.0-97.0); Mean Platelet Volume 9.9 FL (9.5-12.2); Monocytes # (A) 0.46 X 10*3/uL (0.20-1.00); Monocytes % (A) 5.9 %; NRBC Per 100 WBC 0 X 10*3/uL (0.00-0.01); Neutrophils # (A) 5.09 X 10*3/uL (1.80-7.70); Neutrophils % (A) 64.7 %; Platelet Count 349 X 10*3/uL (140-440); RBC 4.79 X 10*6/uL (4.40-5.60); RDW 11.9 % (11.5-14.5); WBC 7.86 X 10*3/uL (4.50-10.00)
[2024-03-10 16:18] LABS: ALT 24 U/L (10-49); AST 24 U/L (14-35); Albumin 4.4 g/dL (3.8-4.9); Alkaline Phosphatase 63 U/L (41-126); BUN/Creat Ratio 17.75 Ratio (12.00-20.00); Blood Urea Nitrogen 21.3 mg/dL (9.0-27.0); Carbon Dioxide 26.7 mmol/L (21.6-31.8); Chloride 102 mmol/L (96-109); Chol/HDL Ratio 3.41 Ratio; Globulin 2.2 g/dL (1.6-3.3); Glucose 110 mg/dL (70-110); LDL Cholesterol,Calculated 124.3 mg/dL (0.0-131.0); Sodium 138 mmol/L (135-145); Total Bilirubin 0.7 mg/dL (0.3-1.2); Total Protein 6.6 g/dL (6.2-8.2); VLDL Calculation 15.56 mg/dL (5.00-40.00)
== END | disposition home or self-care (01) ==
LOC: LABWHC1 13:14
PROVIDERS: ATTEND Internal Medicine
DX: E78.5 Hyperlipidemia, unspecified (principal); R73.9 Hyperglycemia, unspecified
CPT/HCPCS: 36415; 80053; 80061; 83036; 84443; 85025

== ENCOUNTER → 2024-10-15 | Outpatient (CLI) | payer MEDICARE ==
[2024-10-15 16:01] LABS: Basophils # (A) 0.03 X 10*3/uL (0.00-0.10); Basophils % (A) 0.4 %; Eosinophils # (A) 0.16 X 10*3/uL (0.04-0.35); Eosinophils % (A) 2.2 %; HCT 42.7 % (39.6-50.0); Lymphocytes # (A) 1.87 X 10*3/uL (0.90-5.00); Lymphocytes % (A) 26.2 %; MCH 30.8 pg (27.0-32.0); MCHC 32.8 g/dL (32.0-37.0); MCV 93.8 FL (80.0-97.0); Monocytes # (A) 0.55 X 10*3/uL (0.20-1.00); Monocytes % (A) 7.7 %; NRBC Per 100 WBC 0 X 10*3/uL (0.00-0.01); Neutrophils % (A) 63.2 %; Platelet Count 308 X 10*3/uL (140-440); RBC 4.55 X 10*6/uL (4.40-5.60); RDW 12.8 % (11.5-14.5); WBC 7.13 X 10*3/uL (4.50-10.00)
[2024-10-15 16:10] LABS: BUN/Creat Ratio 18.17 Ratio (12.00-20.00); Blood Urea Nitrogen 21.8 mg/dL (9.0-27.0); Carbon Dioxide 25.7 mmol/L (21.6-31.8); Chloride 111 mmol/L (96-109); Glucose 105 mg/dL (70-110); LDL Cholesterol,Calculated 94.8 mg/dL (0.0-131.0); Potassium 4.6 mmol/L (3.5-5.5); Sodium 148 mmol/L (135-145); VLDL Calculation 19.32 mg/dL (5.00-40.00)
[2024-10-15 16:11] LABS: ALT 33 U/L (10-49); AST 29 U/L (14-35); Albumin 4.4 g/dL (3.8-4.9); Alkaline Phosphatase 62 U/L (41-126); Calcium 9.5 mg/dL (8.7-10.3); Globulin 2.2 g/dL (1.6-3.3); Prostate Specific Antigen 7.36 ng/mL (0.000-6.500); Total Bilirubin 0.6 mg/dL (0.3-1.2); Total Protein 6.6 g/dL (6.2-8.2)
== END | disposition home or self-care (01) ==
LOC: LABWHC1 11:32
PROVIDERS: ATTEND Urology
DX: I10 Essential (primary) hypertension (principal); E78.5 Hyperlipidemia, unspecified; R73.9 Hyperglycemia, unspecified; R97.20 Elevated prostate specific antigen [PSA]
CPT/HCPCS: 36415; 80053; 80061; 83036; 84153; 84443; 85025